=== PATIENT | female | born 1990 | race African-American/Black ===

== ENCOUNTER 2017-02-24 11:31 | Emergency (ER) | payer OTHER ==
[~2017-02-24] VITALS: Ht 165.1 cm; Wt 61.4 kg
[2017-02-24] MEDS ORDERED: PIPERACILLIN/TAZO 3.375 GM/D5W 50 ML IV ONE (12:15)
[2017-02-24] MEDS ORDERED: MORPHINE SULFATE 4 MG/ML SYRINGE IVP ONE (12:15)
[2017-02-24] MEDS ORDERED: PERTUSS(ACELL),DIPH,TET VAC/PF 0.5 ML VIAL IM ONE (12:30)
[2017-02-24 12:55] LABS: BASOPHILS % (AUTO) 0.1 % (0.0-2.0); EOSINOPHILS % (AUTO) 3.3 % (1.0-6.0); HEMATOCRIT 42.3 % (36-46); HEMOGLOBIN 13.7 g/dL (12.0-16.0); LYMPHOCYTES # (AUTO) 2.1 K/uL (1.0-4.8); LYMPHOCYTES % (AUTO) 20.7 % (22.0-44.0); MEAN CORPUSCULAR HEMOGLOBIN 30.7 pg (26.0-34.0); MEAN CORPUSCULAR HGB CONC 32.4 G/dL (31.0-37.0); MEAN CORPUSCULAR VOLUME 95 fL (80-100); MONOCYTES % (AUTO) 9.8 % (2.0-9.0); NEUTROPHILS # (AUTO) 6.7 K/uL (1.8-7.7); NEUTROPHILS % (AUTO) 66.1 % (40.0-70.0); PLATELET COUNT (AUTO) 397 K/uL (150-450); RED BLOOD CELL COUNT(AUTO) 4.47 MIL/uL (4.00-5.20); RED CELL DISTRIBUTION WIDTH 12.7 % (11.5-14.5); WHITE BLOOD COUNT (AUTO) 10.1 K/uL (4.5-11.0)
[2017-02-24 13:10] LABS: ALANINE AMINOTRANSFERASE 62 U/L (12-78); ALBUMIN 4.1 g/dL (3.4-5.0); ANION GAP 13 mmol/L (8-16); ASPARTATE AMINOTRANSFERASE 46 U/L (15-37); BILIRUBIN,TOTAL 0.6 mg/dL (0.1-1.0); CALCIUM, TOTAL 9.3 mg/dL (8.8-10.5); CARBON DIOXIDE 26 mmol/L (22-29); CHLORIDE 103 mmol/L (98-107); CREATININE 0.87 mg/dL (0.60-1.30); GLOMERULAR FILTR. RATE CALC > 60 mL/min (>60); SODIUM SERUM 142 mmol/L (136-145); TOTAL PROTEIN, SERUM 8.3 g/dL (6.4-8.2)
[2017-02-24 13:27] LABS: UREA NITROGEN, BLOOD 12 mg/dL (7-18)
[2017-02-24] MEDS ORDERED: KETOROLAC TROMETHAMINE 30 MG/ML VIAL IVP ONE (15:00)
[2017-02-24 16:05] VITALS: BP 126/64
== END 2017-02-24 17:10 | disposition short-term general hospital (02) ==
LOC: EMS 11:34
DX: M65.9 Synovitis and tenosynovitis, unspecified (principal); F12.90 Cannabis use, unspecified, uncomplicated; F17.210 Nicotine dependence, cigarettes, uncomplicated
CPT/HCPCS: 36415; 73140; 80053; 85025; 90471; 90715; 96365; 96375; 99285; J1885; J2270; J2543

== ENCOUNTER 2017-08-21 16:58 | Emergency (ER) | payer OTHER ==
[~2017-08-21] VITALS: Ht 165.1 cm; Wt 59.0 kg
[2017-08-21] MEDS ORDERED: HYDROCODONE/ACETAMINOPHEN 5-325 MG TABLET PO ONE (18:00)
[2017-08-21 18:41] VITALS: BP 130/86
== END 2017-08-21 18:43 | disposition home or self-care (01) ==
LOC: EMS 16:59
DX: K02.9 Dental caries, unspecified (principal); F17.210 Nicotine dependence, cigarettes, uncomplicated; F12.10 Cannabis abuse, uncomplicated
CPT/HCPCS: 99283; 99406

== ENCOUNTER 2020-04-14 12:13 | Emergency (ER) | payer SELFPAY ==
[~2020-04-14] VITALS: Ht 167.6 cm; Wt 68.2 kg
[2020-04-14] MEDS ORDERED: SODIUM CHLORIDE 0.9% 1,000 ML IV ONE (13:00)
[2020-04-14] MEDS ORDERED: METOCLOPRAMIDE HCL 5 MG/ML 2 ML VIAL IVP ONE (13:00)
[2020-04-14] MEDS ORDERED: DiphenhydrAMINE HCL 50 MG/ML VIAL IVP ONE (13:00)
[2020-04-14 13:11] LABS: APPEARANCE,URINE CLEAR (CLEAR); BILIRUBIN,URINE NEGATIVE (NEGATIVE); GLUCOSE, URINE (UA) NEGATIVE (NEGATIVE); KETONES,URINE NEGATIVE (NEGATIVE); LEUKOCYTE ESTERASE ,URINE NEGATIVE (NEGATIVE); NITRATE,URINE NEGATIVE (NEGATIVE); OCCULT BLOOD,URINE NEGATIVE (NEGATIVE); PH,URINE 6.5 (5.0-8.0); PROTEIN,URINE NEGATIVE (NEGATIVE)
[2020-04-14 13:16] LABS: BASOPHILS % (AUTO) 0.8 % (0.0-2.0); EOSINOPHILS % (AUTO) 7.3 % (1.0-6.0); HEMATOCRIT 37.7 % (36-46); HEMOGLOBIN 12.5 g/dL (12.0-16.0); LYMPHOCYTES % (AUTO) 48.7 % (22.0-44.0); MEAN CORPUSCULAR HEMOGLOBIN 31.7 pg (26.0-34.0); MEAN CORPUSCULAR HGB CONC 33.2 G/dL (31.0-37.0); MEAN CORPUSCULAR VOLUME 96 fL (80-100); MONOCYTES # (AUTO) 0.4 K/uL (0.1-1.0); NEUTROPHILS # (AUTO) 1.3 K/uL (1.8-7.7); NEUTROPHILS % (AUTO) 32.2 % (40.0-70.0); PLATELET COUNT (AUTO) 228 K/uL (150-450); RED BLOOD CELL COUNT(AUTO) 3.94 MIL/uL (4.00-5.20); RED CELL DISTRIBUTION WIDTH 12.5 % (11.5-14.5)
[2020-04-14 13:20] LABS: BACTERIA,URINE None Seen /HPF (None Seen); RBC,URINE 0-2 /HPF (0-2); SQUAMOUS EPITHELIAL CELL,UR Few /LPF (None Seen); WBC,URINE None Seen /HPF (0-5)
[2020-04-14 14:24] LABS: ANION GAP 6 mmol/L (8-16); CARBON DIOXIDE 26 mmol/L (22-29); CHLORIDE 109 mmol/L (98-107); CREATININE 0.75 mg/dL (0.60-1.30); GLOMERULAR FILTR. RATE CALC > 60 mL/min (>60); GLUCOSE,RANDOM 80 mg/dL (70-110); POTASSIUM 4.2 mmol/L (3.5-5.1); SODIUM SERUM 141 mmol/L (136-145); UREA NITROGEN, BLOOD 12 mg/dL (7-18)
[2020-04-14 14:29] LABS: ALANINE AMINOTRANSFERASE 22 U/L (12-78); ALBUMIN 3.4 g/dL (3.4-5.0); ALKALINE PHOSPHATASE 44 U/L (46-116); ASPARTATE AMINOTRANSFERASE 15 U/L (15-37); BILIRUBIN,TOTAL 0.4 mg/dL (0.1-1.0); TOTAL PROTEIN, SERUM 6.5 g/dL (6.4-8.2)
[2020-04-14 14:48] LABS: HCG,QUANTITATIVE < 1 mIU/mL (0-6)
[2020-04-14 15:09] VITALS: BP 128/67
== END 2020-04-14 15:24 | disposition home or self-care (01) ==
LOC: EMS 12:14
DX: R51 Headache (principal); R11.0 Nausea; R03.0 Elevated blood-pressure reading, without diagnosis of hypertension; R10.30 Lower abdominal pain, unspecified; F31.9 Bipolar disorder, unspecified; F20.9 Schizophrenia, unspecified; F17.210 Nicotine dependence, cigarettes, uncomplicated
CPT/HCPCS: 36415; 80053; 81001; 84702; 85025; 96374; 96375; 99284; J1200; J2765; J7030

== ENCOUNTER 2021-10-12 13:59 | Emergency (ER) | payer MEDICAID, OTHER ==
[~2021-10-12] VITALS: Ht 165.1 cm; Wt 68.2 kg
[2021-10-12] MEDS ORDERED: IBUPROFEN 600 MG TABLET PO ONE (15:30)
[2021-10-12 16:05] VITALS: BP 121/71
== END 2021-10-12 16:10 | disposition home or self-care (01) ==
LOC: EMS 13:59
DX: M79.651 Pain in right thigh (principal); F32.9 Major depressive disorder, single episode, unspecified; F17.210 Nicotine dependence, cigarettes, uncomplicated
CPT/HCPCS: 93971; 99284; Z7502; Z7610

== ENCOUNTER 2022-01-19 10:24 | Emergency (ER) | payer OTHER ==
[~2022-01-19] VITALS: Ht 167.6 cm; Wt 65.9 kg
[2022-01-19 12:30] VITALS: BP 116/84
[2022-01-19] MEDS ORDERED: CEPH500C3 PO (12:32)
== END 2022-01-19 12:47 | disposition home or self-care (01) ==
LOC: EMS 10:28
DX: S90.112A Contusion of left great toe without damage to nail, initial encounter (principal); L03.032 Cellulitis of left toe; F32.9 Major depressive disorder, single episode, unspecified; F17.210 Nicotine dependence, cigarettes, uncomplicated; W22.8XXA Striking against or struck by other objects, initial encounter; Y93.89 Activity, other specified; Y92.89 Other specified places as the place of occurrence of the external cause; Y99.8 Other external cause status
CPT/HCPCS: 99281; 99283